=== PATIENT | male | born 1955 | race Two or more races ===

== ENCOUNTER 2019-05-03 05:20 | Day surgery (SDC) | payer OTHER ==
[~2019-05-03 05:20] MED LIST: ALTACE10 MG PO; ASPIR 8181 MG PO; HYDROCHLOROTH12.5 M1 PO; METFORMIN HCL500 M2 PO; [UNRECOGNIZED DRUG - OTHER]
[2019-05-03] MEDS ORDERED: PERCOCET 5-3251 EACH PO (09:01)
== END 2019-05-03 11:20 | disposition home or self-care (01) ==
LOC: CIR.AMB 05:20 → EDBD 07:00 → CIR.AMB 07:00
DX: D35.1 Benign neoplasm of parathyroid gland (principal)